=== PATIENT | female | born 1990 | race Caucasian/White ===

== ENCOUNTER 2016-11-20 05:21 | Emergency (ER) | payer OTHER ==
[~2016-11-20] VITALS: Ht 170.2 cm; Wt 68.0 kg
[2016-11-20 05:34] VITALS: BP 117/66; PULSE 86; RESP 16; TEMP 98.1; O2SAT 99
[2016-11-20] MEDS ORDERED: BUSP1TAB PO (06:22)
[2016-11-20] MEDS ORDERED: ZYRT10CA PO (06:22)
[2016-11-20] MEDS ORDERED: SODIUM CHLOR 0.9% 1000 ML INJ 1,000 ML IV SCH (06:24)
[2016-11-20] MEDS ORDERED: MORPHINE SULFATE 4 MG/ML INJ IV PUSH ONE ×2 (06:30→09:00)
[2016-11-20] MEDS ORDERED: KETOROLAC TROMETHAMINE 30 MG/ML (IVP) VIAL IVP ONE (06:30)
[2016-11-20] MEDS ORDERED: SODIUM CHLORIDE 0.9% FLUSH 10 ML FLUSH IV FLUSH PRN (06:30)
[2016-11-20] MEDS ORDERED: ONDANSETRON HCL 4 MG/2 ML VIAL IVP ONE (06:30)
--- NOTE | 2016-11-20 06:32 | PD ---
HPI . Right flank pain Chief Complaint: Flank/Kidney Pain Time Seen by Provider: 06:24 Travel History International Travel<30 days: No Contact w/Intl Traveler<30days: No Traveled to known affect area: No History of Present Illness HPI Patient presents with right flank pain which started a couple days ago. She states that it became acutely worse during the night. She reports 2 episodes of emesis tonight. She describes it as a sharp, stabbing, cramping pain in the right back and upper abdomen. She rates it as a 5/10. She states that movement makes the pain better. She has not noticed anything that makes the pain worse. Pain does not seem to be exacerbated by food. Other than the couple of episodes of emesis during the night tonight, she has had no associated symptoms. Specifically, no fever, diarrhea, urinary tract symptoms, gynecological symptoms. PFSH Past Medical History ?: Unknown LMP: 10/20/16 Social History Tobacco Use: Yes Allergies-Medications (Allergen,Severity, Reaction): Coded Allergies: Flagyl (Verified Allergy, Severe, Anaphylaxis, 11/20/16) Peanut (Verified Allergy, Severe, Confusion, 11/20/16) Reported Meds & Prescriptions Reported Meds & Active Scripts Active Reported Buspirone (Buspirone HCl) 7.5 Mg Tab 7.5 Mg PO BID Zyrtec Allergy (Cetirizine HCl) 10 Mg Cap 5 Mg PO DAILY Review of Systems Except as stated in HPI: all other systems reviewed are Neg General / Constitutional: No: Fever, Chills Gastrointestinal: Positive: Nausea, Vomiting, Abdominal Pain, No: Diarrhea Genitourinary: Positive: Flank Pain, No: Urgency, Frequency, Dysuria, Pelvic Pain, Dyspareunia, Discharge, Vaginal Bleeding Physical Exam Narrative GENERAL: This is a healthy-appearing young woman who does not appear to be in any acute distress. SKIN: Warm and dry. No diaphoresis. HEAD: Atraumatic. Normocephalic. EYES: Pupils equal and round. Extraocular intact. ENT: No nasal bleeding or discharge. Mucous membranes pink and moist. NECK: Trachea midline. Neck supple. CARDIOVASCULAR: Regular rate and rhythm. RESPIRATORY: No accessory muscle use. GASTROINTESTINAL: Abdomen soft. Positive right upper quadrant tenderness. No CVA tenderness. MUSCULOSKELETAL: No obvious deformities. No edema. NEUROLOGICAL: Awake and alert. No obvious cranial nerve deficits. Motor grossly within normal limits. Normal speech. PSYCHIATRIC: Appropriate mood and affect; insight and judgment normal. Data Data Last Documented VS Vital Signs Date Time Temp Pulse Resp B/P Pulse Ox O2 Delivery O2 Flow Rate FiO2 11/20/16 05:34 98.1 86 16 117/66 99 Orders Complete Blood Count With Diff (11/20/16 06:24) Comprehensive Metabolic Panel (11/20/16 06:24) Lipase (11/20/16 06:24) Urinalysis - C+S If Indicated (11/20/16 06:24) Ct Abd/Pel W Iv Contrast(Rout) (11/20/16 06:24) Iv Access Insert/Monitor (11/20/16 06:24) Morphine Inj (Morphine Inj) (11/20/16 06:30) Ondansetron Inj (Zofran Inj) (11/20/16 06:30) Sodium Chlor 0.9% 1000 Ml Inj (Ns 1000 M (11/20/16 06:24) Sodium Chloride 0.9% Flush (Ns Flush) (11/20/16 06:30) MDM Medical Decision Making Medical Screen Exam Complete: Yes Emergency Medical Condition: Yes Differential Diagnosis Differential diagnosis of flank pain includes but is not limited to kidney stone , pyelonephritis, musculoskeletal pain, PE Narrative Course Patient presents with right flank pain. On exam, she has right upper quadrant tenderness. I have ordered labs and a CT. I have ordered IV analgesics. Care will be signed out to the oncoming physician at 7 AM. Diagnosis Primary Impression: Right flank pain Patient Instructions: Narcotic given in the ED Condition: Stable Jacquelin Bell MD November 20, 2016 06:32
[2016-11-20] MEDS ORDERED: diphenhydrAMINE HCL 50 MG/ML VIAL ONE (06:56)
[2016-11-20] MEDS ORDERED: diphenhydrAMINE HCL 50 MG/ML VIAL IV PUSH ONE (07:00)
[2016-11-20 07:09] VITALS: BP 109/63; PULSE 59; RESP 20; O2SAT 99
[2016-11-20 07:10] LABS: BASOPHIL # 0.1 TH/MM3 (0-0.2); BASOPHIL % 0.9 % (0.0-2.0); EOSINOPHIL # 0.3 TH/MM3 (0-0.4); EOSINOPHIL % 2.8 % (0.0-4.0); HEMATOCRIT 41.2 % (35.0-46.0); HEMO FLAGS DIFF FINAL; LYMPH % 19.9 % (9.0-44.0); LYMPHOCYTE # 2.3 TH/MM3 (1.0-4.8); MEAN CELL VOLUME 96.5 FL (80.0-100.0); MEAN CORPUSCULAR HEMOGLOBIN 34.1 PG (27.0-34.0); MEAN CORPUSCULAR HGB CONC 35.4 % (32.0-36.0); MONO % 6.9 % (0.0-8.0); NEUT % 69.5 % (16.0-70.0); PLATELET COUNT 294 TH/MM3 (150-450); RED BLOOD COUNT 4.27 MIL/MM3 (4.00-5.30); RED CELL DISTRIBUTION WIDTH 13.7 % (11.6-17.2); WHITE BLOOD COUNT 11.5 TH/MM3 (4.0-11.0)
[2016-11-20 07:34] LABS: ANION GAP 7 MEQ/L (5-15); AST (GOT) 21 U/L (15-37); BICARBONATE 22.8 MEQ/L (21.0-32.0); BLOOD UREA NITROGEN 11 MG/DL (7-18); CHLORIDE 110 MEQ/L (98-107); GLOMERULAR FILTRATION RATE 72 ML/MIN (>89); POTASSIUM 4.3 MEQ/L (3.5-5.1); SODIUM (NA) 140 MEQ/L (136-145)
--- NOTE | 2016-11-20 07:42 | PD ---
Physical Exam Narrative Patient was seen by ED physician and signed out to me. Data Data Last Documented VS Vital Signs Date Time Temp Pulse Resp B/P Pulse Ox O2 Delivery O2 Flow Rate FiO2 11/20/16 07:09 59 20 109/63 99 11/20/16 05:34 98.1 Orders Complete Blood Count With Diff (11/20/16 06:24) Comprehensive Metabolic Panel (11/20/16 06:24) Lipase (11/20/16 06:24) Urinalysis - C+S If Indicated (11/20/16 06:24) Ct Abd/Pel W Iv Contrast(Rout) (11/20/16 06:24) Iv Access Insert/Monitor (11/20/16 06:24) Morphine Inj (Morphine Inj) (11/20/16 06:30) Ondansetron Inj (Zofran Inj) (11/20/16 06:30) Sodium Chlor 0.9% 1000 Ml Inj (Ns 1000 M (11/20/16 06:24) Sodium Chloride 0.9% Flush (Ns Flush) (11/20/16 06:30) Ketorolac Inj (Toradol Inj) (11/20/16 06:30) Ed Urine Pregnancytest Poc (11/20/16 06:24) Diphenhydramine Inj (Benadryl Inj) (11/20/16 07:00) Diphenhydramine Inj (Benadryl Inj) (11/20/16 06:56) Iohexol 350 Inj (Omnipaque 350 Inj) (11/20/16 08:38) Morphine Inj (Morphine Inj) (11/20/16 09:00) Labs Laboratory Tests Test 11/20/16 11/20/16 06:45 07:45 White Blood Count 11.5 TH/MM3 Red Blood Count 4.27 MIL/MM3 Hemoglobin 14.6 GM/DL Hematocrit 41.2 % Mean Corpuscular Volume 96.5 FL Mean Corpuscular Hemoglobin 34.1 PG Mean Corpuscular Hemoglobin 35.4 % Concent Red Cell Distribution Width 13.7 % Platelet Count 294 TH/MM3 Mean Platelet Volume 8.7 FL Neutrophils (%) (Auto) 69.5 % Lymphocytes (%) (Auto) 19.9 % Monocytes (%) (Auto) 6.9 % Eosinophils (%) (Auto) 2.8 % Basophils (%) (Auto) 0.9 % Neutrophils # (Auto) 8.0 TH/MM3 Lymphocytes # (Auto) 2.3 TH/MM3 Monocytes # (Auto) 0.8 TH/MM3 Eosinophils # (Auto) 0.3 TH/MM3 Basophils # (Auto) 0.1 TH/MM3 CBC Comment DIFF FINAL Differential Comment Sodium Level 140 MEQ/L Potassium Level 4.3 MEQ/L Chloride Level 110 MEQ/L Carbon Dioxide Level 22.8 MEQ/L Anion Gap 7 MEQ/L Blood Urea Nitrogen 11 MG/DL Creatinine 0.94 MG/DL Estimat Glomerular Filtration 72 ML/MIN Rate Random Glucose 82 MG/DL Calcium Level 8.7 MG/DL Total Bilirubin 0.3 MG/DL Aspartate Amino Transf 21 U/L (AST/SGOT) Alanine Aminotransferase 34 U/L (ALT/SGPT) Alkaline Phosphatase 57 U/L Total Protein 6.9 GM/DL Albumin 3.4 GM/DL Lipase 253 U/L Urine Color YELLOW Urine Turbidity HAZY Urine pH 5.5 Urine Specific Shafer 1.029 Urine Protein 30 mg/dL Urine Glucose (UA) NEG mg/dL Urine Ketones NEG mg/dL Urine Occult Blood MOD Urine Nitrite NEG Urine Bilirubin NEG Urine Urobilinogen LESS THAN 2.0 MG/DL Urine Leukocyte Esterase MOD Urine RBC 143 /hpf Urine WBC 5 /hpf Urine Squamous Epithelial 4 /hpf Cells Urine Bacteria FEW /hpf Urine Mucus MANY /lpf Microscopic Urinalysis Comment CULT NOT INDICATED MDM Supervised Visit with ELIAN: No Interpretation(s) Last Impressions Abdomen/Pelvis CT 11/20/16 0624 Signed Impressions: Service Date/Time: November 08:31 - CONCLUSION: 1. There is a 4 x 3 mm stone in the right proximal ureter at the ureteropelvic junction. It is not causing any significant hydronephrosis at this time. No other renal stones are visualized. 2. Fluid density structure abutting the right heart measuring 3.7 x 1.9 cm most likely represents a pericardial cyst. 3. There is a left ovarian cyst measuring 3.2 cm. Michael Hamlin MD 9:09 AM. CBC with WBC 11.5. Normal differential. CMP within normal limit. UA positive for RBC. Narrative Course Patient was seen by ED physician and signed out to me. Diagnosis Primary Impression: Nephrolithiasis Patient Instructions: Narcotic given in the ED, General Instructions Additional Instruction: Medications as directed. Follow-up with urologist. Return if intractable pain , persistent vomiting, fever. Med/Other Pt SpecificInfo: Prescription(s) given Scripts Oxycodone-Acetaminophen (Percocet)5-325 mg Tab1 Tab PO Q6H PRN (PAIN) #20 TAB Ref 0 Prov:Sabas Watkins MD 11/20/16 Ondansetron Odt (Zofran Odt)4 Mg Tab4 Mg SL Q6HR PRN (Nausea/Vomiting) #12 TAB Ref 0 Prov:Sabas Watkins MD 11/20/16 Tamsulosin (Flomax)0.4 Mg Cap0.4 Mg PO HS #10 CAP Ref 0 Prov:Sabas Watkins MD 11/20/16 Hydrocodone-Acetaminophen ([employer])5-325 mg Tab1 Tab PO Q6H PRN (PAIN) #30 TAB Prov:Sabas Watkins MD 11/20/16 Disposition: 01 DISCHARGE HOME Condition: Stable Sabas Watkins MD November 20, 2016 07:42
[2016-11-20 07:47] LABS: ALKALINE PHOSPHATASE 57 U/L (45-117); ALT (GPT) 34 U/L (10-53); TOTAL BILIRUBIN ADULT 0.3 MG/DL (0.2-1.0)
[2016-11-20 08:20] LABS: BACTERIA, URINE FEW /hpf; BLOOD, URINE MOD (NEG); COMMENT (UR) CULT NOT INDICATED; CULTURE IF INDICATED CULT NOT INDICATED; GLUCOSE,URINE NEG (NEG); KETONE, URINE NEG (NEG); MUCUS URINE MANY /lpf (OCC); NITRITE,URINE NEG (NEG); PH, URINE 5.5 (5.0-8.5); SQUAMOUS EPITHELIAL CELL URINE 4 /hpf (0-5); URINE COLOR YELLOW (YELLW/STRAW)
[2016-11-20] MEDS ORDERED: IOHEXOL 350 MG/ML 10 ML VIAL (for RAD DIAG) IV ONE (08:38)
--- NOTE | 2016-11-20 09:00 | RADRPT ---
EXAM DATE/TIME: 11/20/2016 08:31 [facility] COMPARISON: No previous studies available for comparison. INDICATIONS : Nausea and vomiting along with right flank pain. IV CONTRAST: 75 cc Omnipaque 350 (iohexol) IV ORAL CONTRAST: No oral contrast ingested. RADIATION DOSE: 9.96 CTDIvol (mGy) MEDICAL HISTORY : None SURGICAL HISTORY : Appendectomy. ENCOUNTER: Initial ACUITY: 3 days PAIN SCALE: 7/10 LOCATION: Right flank TECHNIQUE: Volumetric scanning of the abdomen and pelvis was performed. Using automated exposure control and ad justment of the mA and/or kV according to patient size, radiation dose was kept as low as reasonably achievable to obtain optimal diagnostic quality images. FINDINGS: LOWER LUNGS: The visualized lower lungs are clear. There is respiratory motion artifact. An ovoid fluid density st ructure abuts the right heart measuring 3.7 x 1.9 cm. LIVER: Homogeneous density without lesion. There is no dilation of the biliary tree. No calcified gallston es. SPLEEN: Normal size without lesion. PANCREAS: Within normal limits. KIDNEYS: Normal in size and shape. There is no mass or hydronephrosis. There is a 4 x 3 mm stone in the right proximal ureter at the ureteropelvic junction. No other renal stones are visualized.. ADRENAL GLANDS: Within normal limits. VASCULAR: There is no aortic aneurysm. BOWEL/MESENTERY: The stomach, small bowel, and colon demonstrate no acute abnormality. There is no free intraperitone al air or fluid. Clips are present in the right lower quadrant and at the base of the cecum. ABDOMINAL WALL: Within normal limits. RETROPERITONEUM: There is no lymphadenopathy. BLADDER: No wall thickening or mass. REPRODUCTIVE: There is a left ovarian cyst measuring 3.2 cm. Uterus is retroverted. INGUINAL: There is no lymphadenopathy or hernia. MUSCULOSKELETAL: Within normal limits for patient age. CONCLUSION: 1. There is a 4 x 3 mm stone in the right proximal ureter at the ureteropelvic junction. It is not ca using any significant hydronephrosis at this time. No other renal stones are visualized. 2. Fluid density structure abutting the right heart measuring 3.7 x 1.9 cm most likely represents a p ericardial cyst. 3. There is a left ovarian cyst measuring 3.2 cm. Michael Hamlin MD on November 20, 2016 at 8:53 Board Certified Radiologist. This report was verified electronically.
[2016-11-20] MEDS ORDERED: ZOFR4TAB3 SL (09:16)
[2016-11-20] MEDS ORDERED: TAMS5CAP PO (09:16)
[2016-11-20] MEDS ORDERED: NORC5TAB PO (09:16)
[2016-11-20] MEDS ORDERED: PERC5TAB12 PO (09:26)
[2016-11-20 09:35] VITALS: BP 123/64
== END 2016-11-20 09:37 | disposition home or self-care (01) ==
LOC: NEPE 05:21
DX: N20.2 Calculus of kidney with calculus of ureter (principal); R10.9 Unspecified abdominal pain; R11.10 Vomiting, unspecified
CPT/HCPCS: 74177; 80053; 81001; 83690; 84703; 85025; 96361; 96374; 96375; 96376; 99284; J1200; J1885; J2270; J2405; J7030; Q9967